=== PATIENT | female | born 1955 | race Caucasian/White ===

== ENCOUNTER 2018-01-07 10:26 | Outpatient (CLI) | payer OTHER | END 2018-01-07 21:04 | disposition home or self-care (01) | LOC: MRD 10:26 | PROVIDERS: ATTEND Internal Medicine Geriatric Medicine | DX: M77.31 Calcaneal spur, right foot (principal); M72.9 Fibroblastic disorder, unspecified | CPT/HCPCS: 73630 ==

== ENCOUNTER 2019-02-13 09:43 | Outpatient (CLI) | payer OTHER ==
[2019-02-13 10:18] LABS: BASOPHILS % (AUTO) 0.4 % (0.0-2.0); EOSINOPHILS # (AUTO) 0.1 K/uL (0-0.4); EOSINOPHILS % (AUTO) 1.6 % (0.0-4.0); HEMATOCRIT 46.2 % (36-48); HEMOGLOBIN 15.2 g/dL (12.0-16.0); LYMPHOCYTES # (AUTO) 1.4 K/uL (2.5-16.5); MEAN CORPUSCULAR HEMOGLOBIN 29 pg (27-31); MEAN CORPUSCULAR HGB CONC 33 g/dL (33-37); MONOCYTES # (AUTO) 0.5 K/uL (0.8-1.0); MONOCYTES % (AUTO) 6.6 % (1.7-9.3); NEUTROPHILS # (AUTO) 5.8 K/uL (1.8-7.7); NEUTROPHILS % (AUTO) 73.4 % (42.2-75.2); PLATELET COUNT (AUTO) 254 K/uL (140-450); RED BLOOD CELL COUNT(AUTO) 5.25 MIL/uL (4.20-5.40); RED CELL DISTRIBUTION WIDTH 13.5 % (11.6-13.7); WHITE BLOOD COUNT (AUTO) 7.9 K/uL (4.8-10.8)
[2019-02-13 11:33] LABS: PROTHROMBIN TIME 10.4 secs (10.8-13.4)
== END 2019-02-13 20:46 | disposition home or self-care (01) ==
LOC: MLB 09:43
PROVIDERS: ATTEND Internal Medicine Geriatric Medicine
DX: Z01.810 Encounter for preprocedural cardiovascular examination (principal); N95.0 Postmenopausal bleeding; M47.894 Other spondylosis, thoracic region; J98.11 Atelectasis
CPT/HCPCS: 36415; 71046; 83036; 85025; 85610; 85730

== ENCOUNTER 2019-02-18 07:12 | Outpatient (CLI) | payer OTHER ==
[2019-02-18 07:42] LABS: ANION GAP 10.7 (8-16); CARBON DIOXIDE 30.2 mmol/L (21-32); CREATININE 0.7 mg/dL (0.6-1.3); POTASSIUM 3.9 mmol/L (3.5-5.1)
[2019-02-18 07:56] LABS: ALBUMIN 3.8 g/dL (3.4-5.0); CHOL/HDL RATIO 3.4 (1-4.5); THYROID STIMULATING HORMONE 1.85 uIU/mL (0.34-3.74); TOTAL BILIRUBIN 0.7 mg/dL (0.0-1.0)
== END 2019-02-18 21:18 | disposition home or self-care (01) ==
LOC: MLB 07:12
PROVIDERS: ATTEND Internal Medicine Geriatric Medicine
DX: N95.0 Postmenopausal bleeding (principal)
CPT/HCPCS: 36415; 80053; 84443

== ENCOUNTER 2019-04-14 06:58 | Day surgery (SDC) | payer OTHER ==
[2019-04-13 10:12] LABS: ALBUMIN 3.6 g/dL (3.4-5.0); ANION GAP 12.6 (8-16); CARBON DIOXIDE 30.6 mmol/L (21-32); CREATININE 0.7 mg/dL (0.6-1.3); POTASSIUM 4.2 mmol/L (3.5-5.1); TOTAL BILIRUBIN 0.5 mg/dL (0.0-1.0)
[2019-04-13 10:14] LABS: BASOPHILS % (AUTO) 0.5 % (0.0-2.0); EOSINOPHILS # (AUTO) 0.1 K/uL (0-0.4); EOSINOPHILS % (AUTO) 1.9 % (0.0-4.0); HEMATOCRIT 44.9 % (36-48); HEMOGLOBIN 14.9 g/dL (12.0-16.0); LYMPHOCYTES # (AUTO) 1.1 K/uL (2.5-16.5); MEAN CORPUSCULAR HEMOGLOBIN 29 pg (27-31); MEAN CORPUSCULAR HGB CONC 33 g/dL (33-37); MEAN CORPUSCULAR VOLUME 86.6 fL (80-94); MONOCYTES # (AUTO) 0.4 K/uL (0.8-1.0); MONOCYTES % (AUTO) 7.2 % (1.7-9.3); NEUTROPHILS # (AUTO) 4.1 K/uL (1.8-7.7); NEUTROPHILS % (AUTO) 71.4 % (42.2-75.2); PLATELET COUNT (AUTO) 222 K/uL (140-450); RED BLOOD CELL COUNT(AUTO) 5.19 MIL/uL (4.20-5.40); RED CELL DISTRIBUTION WIDTH 13.5 % (11.6-13.7); WHITE BLOOD COUNT (AUTO) 5.8 K/uL (4.8-10.8)
[~2019-04-14] VITALS: Ht 160 cm; Wt 139.7 kg
[2019-04-14] MEDS ORDERED: CLINDAMYCIN 900 MG in DEXTROSE 5% 100 ML IV SCH (08:15)
[2019-04-14] MEDS ORDERED: CLINDAMYCIN 900 MG/6 ML VIAL IV ONE (11:39)
[2019-04-14] MEDS ORDERED: KETOROLAC 30 MG/ML VIAL ONE (11:40)
[2019-04-14] MEDS ORDERED: ONDANSETRON 4 MG/2 ML VIAL ONE (11:40)
[2019-04-14] MEDS ORDERED: DESFLURANE 240 ML BTL INH ONE (11:40)
[2019-04-14] MEDS ORDERED: DEXAMETHASONE 4 MG/ML VIAL ONE (11:40)
[2019-04-14] MEDS ORDERED: PROPOFOL 200 MG/20 ML VIAL IV ONE (11:40)
[2019-04-14] MEDS ORDERED: ONDANSETRON 4 MG/2 ML VIAL IVP PRN (12:05)
== END 2019-04-14 13:30 | disposition home or self-care (01) ==
LOC: MDS 06:58 → MMU 06:59 → MDS 13:30
PROVIDERS: ATTEND Obstetrics & Gynecology
DX: N95.0 Postmenopausal bleeding (principal); I10 Essential (primary) hypertension; E66.01 Morbid (severe) obesity due to excess calories; Z90.49 Acquired absence of other specified parts of digestive tract; Z88.0 Allergy status to penicillin
CPT/HCPCS: 36415; 58558; 71045; 80053; 85025; 86886; 86900; 86901; 93005; J0690; J1100; J1885; J2405; J2704; J3490; J7030; J7060; J7120; Q0092

== ENCOUNTER 2020-05-17 09:09 | Outpatient (CLI) | payer OTHER ==
[2020-05-17 09:42] LABS: BASOPHILS % (AUTO) 0.5 % (0.0-2.0); EOSINOPHILS # (AUTO) 0.1 K/uL (0-0.4); EOSINOPHILS % (AUTO) 1.9 % (0.0-4.0); HEMATOCRIT 43.3 % (36-48); HEMOGLOBIN 14.5 g/dL (12.0-16.0); LYMPHOCYTES # (AUTO) 1.5 K/uL (2.5-16.5); LYMPHOCYTES % (AUTO) 18.7 % (20.5-51.1); MEAN CORPUSCULAR HEMOGLOBIN 28 pg (27-31); MEAN CORPUSCULAR HGB CONC 34 g/dL (33-37); MEAN CORPUSCULAR VOLUME 83.1 fL (80-94); MONOCYTES # (AUTO) 0.4 K/uL (0.8-1.0); MONOCYTES % (AUTO) 5.6 % (1.7-9.3); NEUTROPHILS # (AUTO) 5.7 K/uL (1.8-7.7); NEUTROPHILS % (AUTO) 73.3 % (42.2-75.2); PLATELET COUNT (AUTO) 239 K/uL (140-450); RED BLOOD CELL COUNT(AUTO) 5.21 MIL/uL (4.20-5.40); RED CELL DISTRIBUTION WIDTH 14.7 % (11.6-13.7); WHITE BLOOD COUNT (AUTO) 7.8 K/uL (4.8-10.8)
[2020-05-17 09:55] LABS: ALBUMIN 3.7 g/dL (3.4-5.0); ANION GAP 12.9 (8-16); CARBON DIOXIDE 28.1 mmol/L (21-32); CHOL/HDL RATIO 3.1 (1-4.5); CREATININE 0.7 mg/dL (0.6-1.3); TOTAL BILIRUBIN 0.6 mg/dL (0.0-1.0)
== END 2020-05-17 21:04 | disposition home or self-care (01) ==
LOC: MLB 09:09
PROVIDERS: ATTEND Internal Medicine Geriatric Medicine
DX: Z00.00 Encounter for general adult medical examination without abnormal findings (principal)
CPT/HCPCS: 36415; 80053; 82306; 85025

== ENCOUNTER 2020-06-21 09:28 | Outpatient (CLI) | payer OTHER | END 2020-06-21 20:11 | disposition home or self-care (01) | LOC: MRD 09:28 | PROVIDERS: ATTEND Internal Medicine Geriatric Medicine | DX: M79.89 Other specified soft tissue disorders (principal); M77.31 Calcaneal spur, right foot; M19.071 Primary osteoarthritis, right ankle and foot | CPT/HCPCS: 73610; 73630 ==

== ENCOUNTER 2020-08-01 09:10 | Outpatient (CLI) | payer OTHER | END 2020-08-01 17:38 | disposition home or self-care (01) | LOC: MRD 09:10 | DX: N85.00 Endometrial hyperplasia, unspecified (principal); R93.89 Abnormal findings on diagnostic imaging of other specified body structures; N95.1 Menopausal and female climacteric states | CPT/HCPCS: 76830 ==